=== PATIENT | female | born 1995 | race Hispanic/Latino ===

== ENCOUNTER 2025-02-27 20:46 | Emergency (ER) | payer SELFPAY ==
[2025-02-27 21:50] LABS: Bacteria/HPF None Seen HPF (None Seen); CAUTI Indications for Culture Pelvic or flank pain; Glucose, Urine (Dipstick) Normal (Negative); Leukocyte 75 Leu/uL (Negative); Protein, Urine (Dipstick) Negative (Neg-Trace); RBC/HPF Greater than 50 HPF (0-3); Specific Gravity, Urine 1.019 (1.002-1.036)
[2025-02-27 21:52] LABS: Urine Culture Reflex Yes Yes
[2025-02-27 21:54] LABS: #Basophils 0.06 10x3/uL (0.0-0.2); #Eosinophils 0.19 10x3/uL (0.0-0.7); #Monocytes 0.40 10x3/uL (0.11-0.59); #Neutrophils 4.81 10x3/uL (1.40-6.50); %Basophils 0.8 % (0.0-1.0); %Eosinophils 2.4 % (0.0-10.0); %Lymphocytes 30.1 % (21.0-51.0); %Monocytes 5.1 % (0.0-10.0); %Neutrophils 61.2 % (42.0-75.0); Hematocrit 39.8 % (36.0-47.0); Hemoglobin 12.7 g/dL (12.0-16.0); Mean Corpuscular Hemoglobin 29.7 pg (27.0-31.0); Mean Corpuscular Volume 93.0 fL (78.0-98.0); Platelet Count 278 10x3/uL (130-400); Red Blood Cell (RBC) Count 4.28 mill/uL (4.20-5.40); White Blood Cell (WBC) Count 7.85 10x3/uL (4.8-10.8)
[2025-02-27 22:05] LABS: BHCG - Serum POSITIVE (NEGATIVE); Pregs Control Background? CLEAR/WHITE (CLR/WHITE); Pregs Control Bar Appear? YES (CONTROL BAR)
[2025-02-27 22:14] LABS: ALT (SGPT) 19 U/L (Less than 34); AST (SGOT) 25 U/L (11-34); Albumin 4.0 g/dL (3.1-4.5); Alkaline Phosphatase 63 U/L (40-110); Anion Gap 16 mmol/L (10-20); BUN (Urea Nitrogen) 14 mg/dL (7.0-18.7); Bilirubin, Total 0.2 mg/dL (0.3-1.2); Calc. Creatinine Clearance 0 mL/min (70-130); Calcium 9.4 mg/dL (7.8-10.44); Carbon Dioxide 24 mmol/L (22-29); Chloride 106 mmol/L (98-107); Globulin 3.5 g/dL (2.4-3.5); Glucose 103 mg/dL (70-105); Potassium 4.1 mmol/L (3.5-5.1); Sodium 142 mmol/L (136-145)
== END 2025-02-28 00:10 | disposition home or self-care (01) ==
LOC: ERS 20:46
DX: O20.0 Threatened abortion (principal)
CPT/HCPCS: 36415; 76856; 80053; 81001; 84702; 84703; 85025; 86850; 86900; 86901; 87077; 87086